=== PATIENT | female | born 1995 | race Native Hawaiian/Other Pacific Islander ===

== ENCOUNTER 2021-03-16 10:54 | Outpatient (CLI) | payer OTHER ==
[2021-03-15 23:36] LABS: BACTERIAL VAGINOSIS DNA NEGATIVE (NEGATIVE); CANDIDA GLABRATA DNA NEGATIVE (NEGATIVE); CANDIDA GROUP DNA NEGATIVE (NEGATIVE); CANDIDA KRUSEI DNA NEGATIVE (NEGATIVE); TRICHOMONAS VAGINALIS DNA NEGATIVE (NEGATIVE)
[2021-03-16 00:41] LABS: CHLAMYDIA TRACHOMATIS DNA NEGATIVE (NEGATIVE); NEISSERIA GONORRHOEAE DNA NEGATIVE (NEGATIVE); TRICHOMONAS VAGINALIS DNA NEGATIVE (NEGATIVE)
[2021-03-17 13:12] LABS: HIV AG/AB 4TH GEN NON-REACTIVE (NON-REACTIVE)
[2021-03-18 11:45] LABS: HEPATITIS C ANTIBODY NON-REACTIVE (NON-REACTIVE)
== END 2021-03-16 10:55 | disposition home or self-care (01) ==
LOC: EDBD → LAB 10:54 → LAB.N 10:55
PROVIDERS: ATTEND Family Medicine
DX: Z20.2 Contact with and (suspected) exposure to infections with a predominantly sexual mode of transmission (principal)
CPT/HCPCS: 36415; 81599; 86592; 86695; 86696; 86803; 87389; 87491; 87591; 87661; 87801

== ENCOUNTER 2023-04-09 09:39 | Outpatient (CLI) | payer OTHER ==
--- NOTE | 2023-04-09 10:30 | Sleep Patient Instructions ---
Sleep Center Visit Summary - Patient Visit Information Reason for Visit: Initial consult for evaluation of sleep disordered breathing and other sleep issues. - Patient Instructions Instructions Attached: Sleep Study Home Monitor, Sleep Study Additional Instructions: You will be completing a sleep study, either an in-lab polysomnography (PSG) or home sleep study (HST). You will follow-up in the sleep care office after the sleep study is completed to hear the results and talk about therapy, if needed. You will be called by our office staff to schedule this appointment, but you may contact us with any questions. - Clinic Information Contact: [facility] [address] [place] [id number] [email or web address] T: [phone]
--- NOTE | 2023-04-09 10:35 | SLEEP CARE CONSULTATION ---
Information from patient questionnaire entered by Marvin Romero. I have reviewed and concur with the information entered by Marvin Romero. This document represents the service I personally performed and the decisions made by , Jannie Carmona ARNP. History of Present Illness Service Date and Time: 04/09/2023 0939 Reason for Visit: New patient Chief Complaint: reports: Insomnia, Unrefreshed sleep, Excessive daytime sleepiness, Fatigue Date of Onset: The last 3 years Usual bedtime: 9/10 PM Time it takes to fall asleep: Several hours Snores at night: No (only when sick) Observed to quit breathing while asleep: No Sleeps alone due to snoring: No Number of times waking at night: 6-7 Reasons for waking at night: reports: Gasping for air, Other (Gasping for air, nightmares, anxiety, PTSD, light sleeping (every sounds wakes me up)). denies: Choking Toss, Turn, or Twitch while sleeping: Yes Recalls having dreams: Yes Usually gets out of bed at: 6 AM Feels refreshed in the morning: No Morning headache: No Sleepy or fatigued during the day: Yes Ever fallen asleep while driving: No Takes day naps: No Dreams during day naps: No Prior sleep studies: No Additional HPI information: I had the pleasure of seeing IGNACIO GUZMAN today regarding the possibility of her having a sleep disorder. Her current complaints are insomnia, unrefreshed sleep, excessive daytime sleepiness and fatigue. 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 She has been on day shift since January and is having difficulty with her sleep. She says she has a hard time falling sleep, it normally takes 2-3 hours to fall asleep even with taking 20 mg Melatonin. She is waking up frequently and is very tired throughout the day. She says she will "jolt" awake almost hourly. She deals with anxiety with her job in the [employer], it is very stressful. She feels that she needs caffeine to work because of the daytime sleepiness. She does not wake up feeling refreshed and says that she does not snore unless she is sick. She has never been told that she stops breathing at night. 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 Patient is single and lives in [place]. Have you smoked in the past 12 months: No Alcohol use: Yes Alcohol amount and frequency: 2-3 times a month Caffeine use: Yes Caffeine amount and frequency: Every work day (large coffee and 1 energy drink in morning) Family History Family history of sleep disordered breathing: No Allergies and Home Medications Known drug allergies: No Drug allergies reviewed: Yes Home medication list reviewed: Yes Allergy and home medication list: Home Medications Melatonin 20 mg ORAL DAILY 04/09/23 [History] Zoloft 100 mg ORAL DAILY 04/09/23 [History] Review of Systems Weight gain over past 5 years: 0 Weight loss over past 5 years: 0 Cardiovascular: denies: high blood pressure Gastrointestinal: denies: heartburn Neurological: denies: headaches, head trauma Psychiatric: reports: anxiety, depression, claustrophobia Ear/Nose/Throat: denies: injury to nose, tonsillectomy, wisdom teeth removed Immunologic: reports: allergies to food or environment, other (Aquagenic urticaria) Physical Exam Vital signs obtained and entered by: Jannie Potts NP Blood Pressure: 115/70 Cuff size: regular (right arm) Heart Rate: 69 O2 Saturation: 99 Height: 5 ft 6 in Weight: 184 lb 12.8 oz Body Mass Index: 29.8 BMI Classification: Overweight Neck circumference: 14.7 (inches) Mouth and throat: narrow oropharynx Soft palate: long Hard palate: Torus palatinus Uvula: normal Uvula visualization: 0% Mallampati Class IV Tongue: normal in size Tonsils: 1+ Neck: normal w/o lymphadenopathy or thyromegaly Heart: regular rate and rhythm Lungs: clear bilaterally Impression and Plan 1. Suspected Obstructive Sleep Apnea-Hypopnea Syndrome, as suggested by a history of gasping or choking in sleep, frequent awakening during the night, unrefreshed sleep, cognitive impairment, and excessive daytime sleepiness. Narrow oropharynx and obesity are common predisposing factors for obstructive sleep apnea-hypopnea syndrome. I recommend proceeding to polysomnography to confirm the diagnosis and to assess severity. If the patient has significant sleep disordered breathing, a manual CPAP titration study will also be performed to find the optimal treatment pressure. I informed the patient of what the sleep studies involve and after some discussion, obtained agreement to proceed. The pathophysiology of obstructive sleep apnea-hypopnea syndrome was discussed with the patient and health risks of cardiovascular and cerebrovascular disease if not treated. 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 Patient agreed to plan. * Schedule polysomnography. * Avoid long distance driving or driving when feeling sleepy. * Avoid alcohol, sedative and muscle relaxant around bedtime. * Attempt to lose weight. * Review instructions provided by trained office staff on how to prepare for the sleep study. * Return for follow-up after sleep study completed. Counseling Topics: Weight loss health impact Plan: PSG Visit Type: In Office Time Spent with Patient (minutes): 33 Provider Statement: I spent 100% of the Face to Face Visit with the patient with greater than 50% spent counseling the patient and coordination of care.
[2023-04-09 10:42] VITALS: BP 115/70; O2SAT 99
== END 2023-04-09 09:40 | disposition home or self-care (01) ==
LOC: SC 09:39
PROVIDERS: ATTEND Nurse Practitioner Family
DX: G47.8 Other sleep disorders (principal); R41.89 Other symptoms and signs involving cognitive functions and awareness; G47.10 Hypersomnia, unspecified; E66.3 Overweight; Z68.29 Body mass index [BMI] 29.0-29.9, adult; R53.83 Other fatigue
CPT/HCPCS: 99203; 99212

== ENCOUNTER 2023-04-13 08:26 | Emergency (ER) | payer OTHER ==
--- NOTE | 2023-04-13 08:39 | ED Physician Documentation ---
PD HPI URI - Stated complaint Stated Complaint: SOA,COUGH - History obtained from History obtained from: Patient - History of Present Illness Timing - onset: How many days ago (3) Timing duration: Days (3) Timing details: Abrupt onset, Still present Associated symptoms: Fever, Chills, Nasal congestion, Dry cough, Chest pain, Dyspnea, Other (nausea with less intake, and some loose stools.) Similar symptoms before: Has not had sx before Review of Systems Constitutional: reports: Fever, Chills, Myalgias, Fatigue Throat: denies: Sore throat Cardiac: reports: Chest pain / pressure. denies: Palpitations Respiratory: reports: Dyspnea, Cough GI: reports: Nausea, Diarrhea. denies: Abdominal Pain Skin: denies: Rash PD PAST MEDICAL HISTORY - Past Medical History Past Medical History: No Psych: Anxiety - Past Surgical History Past Surgical History: No - Present Medications Home Medications: Ambulatory Orders Medication Instructions Recorded Confirmed Albuterol Sulf [Ventolin Hfa 2 - 3 puffs INH Q4HR PRN #1 each 04/13/23 Inhaler] HYDROcod/ACETAM 5/325 [[place] 5/325] 1 ea PO Q6H PRN #18 tablet 04/13/23 Ibuprofen [Motrin] 600 mg PO TID PRN #25 tab 04/13/23 Ondansetron Odt [Zofran] 4 mg TL Q6H PRN #10 tablet 04/13/23 Sertraline [Zoloft] 25 mg PO DAILY 04/13/23 04/13/23 - Allergies Allergies/Adverse Reactions: Allergies Allergy/AdvReac Type Severity Reaction Status Date / Time No Known Drug Allergies Allergy Verified 04/13/23 08:38 - Social History Does the pt smoke?: No Smoking Status: Never smoker Does the pt drink ETOH?: No Does the pt have substance abuse?: No - Immunizations Immunizations are current?: Yes - POLST Patient has POLST: No PD ED PE NORMAL - Vitals Vital signs reviewed: Yes - General General: Alert and oriented X 3, Well developed/nourished, Other (she appears unwell with pain in chest with coughing, so guards the cough. Interacts well and attentive. Not lethargic. ) - HEENT HEENT: Pharynx benign - Neck Neck: Supple, no meningeal sign, No adenopathy - Cardiac Cardiac: No murmur. No: RRR (mild tachycardic) - Respiratory Respiratory: No respiratory distress, Other (some exp wheezing and hoarseness with coughing.) - Abdomen Abdomen: Soft, Non tender - Derm Derm: Normal color, Warm and dry - Neuro Neuro: Alert and oriented X 3, No motor deficit, Normal speech Results - Vitals Vitals: Vital Signs - 24 hr 04/13/23 04/13/23 04/13/23 08:33 09:16 09:38 Temperature 36.6 C Heart Rate 103 H 70 115 H Respiratory 20 19 20 Rate Blood Pressure 122/79 102/88 H O2 Saturation 98 100 Oxygen O2 Source Room air - Labs Labs: Laboratory Tests 04/13/23 09:10 Nasal Adenovirus (PCR) NOT DETECTED Nasal B. parapertussis DNA (PCR) NOT DETECTED Nasal Coronavir 229E PCR NOT DETECTED Nasal Coronavir HKU1 PCR NOT DETECTED Nasal Coronavir NL63 PCR NOT DETECTED Nasal Coronavir OC43 PCR NOT DETECTED Nasal Enterovir/Rhinovir PCR NOT DETECTED Nasal Influenza A PCR DETECTED A Nasal Influenza B PCR NOT DETECTED Nasal Parainfluen 1 PCR NOT DETECTED Nasal Parainfluen 2 PCR NOT DETECTED Nasal Parainfluen 3 PCR NOT DETECTED Nasal Parainfluen 4 PCR NOT DETECTED Nasal RSV (PCR) NOT DETECTED Nasal B.pertussis DNA PCR NOT DETECTED Nasal C.pneumoniae (PCR) NOT DETECTED Bel Human Metapneumo PCR NOT DETECTED Nasal M.pneumoniae (PCR) NOT DETECTED Nasal SARS-CoV-2 (PCR) NOT DETECTED PD Medical Decision Making - ED course Complexity details: reviewed results, re-evaluated patient (some improvement with Albuterol and Tessalon but not a lot. Can treat pains and cough with short term hydrocodone. Pt was agreeable with that. ), considered differential (sounds flu like illness for 3 days. Cough and chest pain with it are large of her symptoms, but also aches and weakness. ), d/w patient Departure - Departure Disposition: 01 Home, Self Care Clinical Impression: Upper respiratory infection, Cough, Head ache Condition: Stable Record reviewed to determine appropriate education?: Yes Instructions: ED Viral Syndrome Follow-Up: [facility] [Provider Group] Prescriptions: Albuterol Sulf [Ventolin Hfa Inhaler] 2 - 3 puffs INH Q4HR PRN #1 each PRN Reason: Shortness Of Air/Wheezing Ibuprofen [Motrin] 600 mg PO TID PRN #25 tab PRN Reason: Pain HYDROcod/ACETAM 5/325 [[place] 5/325] 1 ea PO Q6H PRN #18 tablet PRN Reason: Pain Ondansetron Odt [Zofran] 4 mg TL Q6H PRN #10 tablet PRN Reason: Nausea / Vomiting Comments: This sounds flulike. The respiratory viral panel is still yet to result. Will call you little bit later with the results or you can find it online on the [facility] patient portal. We would treat the symptoms with a combination of albuterol 2 to 3 puffs 4 times daily to help with some of the tightness in the chest and cough. Additionally ibuprofen 600 mg 3 times a day with food to help with pains. Add ondansetron if needed for nausea. Add Tylenol 500 to 650 mg 4 times daily for pain or hydrocodone/acetaminophen if needed for worse pain and this will also act as a cough suppressant. I would anticipate improving symptoms with this combination. Likely you still have a few more days of illness for most of the common viral type problems. Recheck if not improving over the next day or 2 and resolved by 3-5 more days. Off work for a few days. I sent your prescription to [facility] pharmacy. I am prescribing a short course of narcotic pain medication for you. These are potentially dangerous and addictive medications that should be used carefully. These medications may constipate you. Take an [id number] stool softener such as docusate twice daily with plenty of water while taking these medications. If you go 24 hours without a bowel movement, take [id number] MiraLAX, per package instructions. Do not drink or drive while taking these medications. If you received narcotic or sedating medications while in the emergency department do not drive for 24 hours. Store this medication in a safe, secure place and out of reach of children. It is a violation of federal law to give or sell this medication to another person or to use in a manner other than prescribed. The ED will not refill narcotic prescriptions, including prescriptions lost or stolen. You can dispose of unwanted medications at the [facility]'s office or at several pharmacies such as [facility]. Forms: Activity restrictions Discharge Date/Time: 04/13/23 10:14
[2023-04-13] MEDS ORDERED: ALBUTEROL 1 PUFF INH STA (08:56)
[2023-04-13] MEDS ORDERED: ACETAMINOPHEN 325 MG TABLET PO STA (08:56)
[2023-04-13] MEDS ORDERED: ONDANSETRON ODT 4 MG TABLET TL STA (08:56)
[2023-04-13] MEDS ORDERED: BENZONATATE 100 MG CAPSULE PO STA (08:56)
[2023-04-13 10:01] LABS: CORONAVIRUS 229E-RESP PCR NOT DETECTED; CORONAVIRUS HKU1-RESP PCR NOT DETECTED; CORONAVIRUS NL63-RESP PCR NOT DETECTED; CORONAVIRUS OC43-RESP PCR NOT DETECTED; HUMAN METAPNEUMOVIRUS NOT DETECTED; RHINOVIRUS/ENTEROVIRUS NOT DETECTED; SARS-CoV-2 -RESP PCR PANEL NOT DETECTED
[2023-04-13] MEDS ORDERED: IBUPROFEN 600 MG TABLET PO STA (10:01)
[2023-04-13 10:02] LABS: B. PARAPERTUSSIS- RESP PCR PAN NOT DETECTED; B. PERTUSSIS- RESP PCR PANEL NOT DETECTED; C. PNEUMONIAE- RESP PCR PANEL NOT DETECTED; INFLUENZA A NO SUB- RESP PCR DETECTED; INFLUENZA B - RESP PCR PANEL NOT DETECTED; M. PNEUMONIAE- RESP PCR PANEL NOT DETECTED; PARAINFLUENZA VIRUS 1 NOT DETECTED; PARAINFLUENZA VIRUS 2 NOT DETECTED; PARAINFLUENZA VIRUS 3 NOT DETECTED; PARAINFLUENZA VIRUS 4 NOT DETECTED; RSV- RESP PCR PANEL NOT DETECTED
[2023-04-13 10:19] VITALS: BP 102/88; O2SAT 100
== END 2023-04-13 10:14 | disposition home or self-care (01) ==
LOC: ED 08:26
DX: J06.9 Acute upper respiratory infection, unspecified (principal); R51.9 Headache, unspecified
CPT/HCPCS: 87633; 94640; 99283; 99284; A9270; Q0162

== ENCOUNTER 2023-05-17 17:13 | Emergency (ER) | payer OTHER ==
[2023-05-17 17:30] VITALS: BP 125/79; O2SAT 100
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
== END 2023-05-17 18:02 | disposition home or self-care (01) ==
LOC: ED 17:13
DX: S16.1XXA Strain of muscle, fascia and tendon at neck level, initial encounter (principal); S39.012A Strain of muscle, fascia and tendon of lower back, initial encounter; V43.52XA Car driver injured in collision with other type car in traffic accident, initial encounter
CPT/HCPCS: 99282; 99283

== ENCOUNTER 2023-05-29 22:00 | Emergency (ER) | payer OTHER ==
[2023-05-29 22:27] VITALS: O2SAT 99
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
[2023-05-30 01:29] VITALS: BP 119/70
== END 2023-05-30 01:20 | disposition home or self-care (01) ==
LOC: ED 22:00
DX: M54.50 Low back pain, unspecified (principal); V49.9XXA Car occupant (driver) (passenger) injured in unspecified traffic accident, initial encounter
CPT/HCPCS: 99283